=== PATIENT | male | born 1995 | race African-American/Black ===

== ENCOUNTER 2019-05-28 20:05 | Emergency (ER) | payer SELFPAY ==
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
== END 2019-05-28 20:29 | disposition home or self-care (01) ==
LOC: VM.ED 20:05
DX: S00.81XA Abrasion of other part of head, initial encounter (principal); V57.5XXA Driver of pick-up truck or van injured in collision with fixed or stationary object in traffic accident, initial encounter
CPT/HCPCS: 99283-GF; 99284

== ENCOUNTER 2019-09-06 02:57 | Emergency (ER) | payer BC, OTHER ==
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
== END 2019-09-06 03:23 | disposition left against medical advice (07) ==
LOC: SUPCPDRO 02:57 → VM.ED 02:57
DX: S90.512A Abrasion, left ankle, initial encounter (principal); W23.0XXA Caught, crushed, jammed, or pinched between moving objects, initial encounter
CPT/HCPCS: 99283